=== PATIENT | female | born 1960 | race Caucasian/White ===

== ENCOUNTER 2020-07-25 04:13 | Observation (INO) | payer BC ==
--- NOTE | 2020-07-25 04:30 | ED ---
Chest Pain HPI - General Chief Complaint: Chest Pain Stated Complaint: Chest Pain Time Seen by Provider: 07/25/20 04:20 Source: patient, RN notes reviewed, old records reviewed Mode of arrival: wheelchair Limitations: no limitations - History of Present Illness MD Complaint: chest pain -: hour(s) Onset: during rest, awoke with symptoms Pain Location: substernal, left chest Pain Radiation: LUE Severity: moderate Severity scale (1-10): 6 Quality: heaviness Consistency: constant Improves With: nothing Worsens With: nothing Anginal Symptoms: dyspnea Other Symptoms: palpitations Treatments Prior to Arrival: none - Related Data Home Medications Medication Instructions Recorded Confirmed Cholecalciferol [Vitamin D3] 1,000 unit PO DAILY 07/17/17 07/17/17 Multivitamins, Thera [Multivitamin 1 tab PO DAILY 07/17/17 07/17/17 (formulary)] Mv-Min/Vit C/Glut/Lysine/Hc124 1 tab PO DAILY 07/17/17 07/17/17 [Airborne Tablet Chewable] Venlafaxine HCl ER [Effexor Xr] 37.5 mg PO DAILY 07/17/17 07/17/17 Allergies Allergy/AdvReac Type Severity Reaction Status Date / Time No Known Allergies Allergy Verified 07/25/20 04:27 Review of Systems ROS Statement: Those systems with pertinent positive or pertinent negative responses have been documented in the HPI. ROS Other: All systems not noted in ROS Statement are negative. EKG Findings - EKG Comments: EKG Findings:: EKG is sinus rhythm 92, OH 130 QRS 92 QTC 440 Past Medical History Past Medical History: No Reported History History of Any Multi-Drug Resistant Organisms: None Reported Past Surgical History: No Surgical Hx Reported Past Psychological History: Depression Smoking Status: Never smoker Past Alcohol Use History: Rare Past Drug Use History: None Reported General Exam Limitations: no limitations General appearance: alert, in no apparent distress, anxious Head exam: Present: atraumatic, normocephalic, normal inspection Eye exam: Present: normal appearance, PERRL, EOMI. Absent: scleral icterus, conjunctival injection, periorbital swelling ENT exam: Present: normal exam, mucous membranes moist Neck exam: Present: normal inspection. Absent: tenderness, meningismus, lymphadenopathy Respiratory exam: Present: normal lung sounds bilaterally. Absent: respiratory distress, wheezes, rales, rhonchi, stridor Cardiovascular Exam: Present: regular rate, normal rhythm, normal heart sounds. Absent: systolic murmur, diastolic murmur, rubs, gallop, clicks GI/Abdominal exam: Present: soft, normal bowel sounds. Absent: distended, tenderness, guarding, rebound, rigid Extremities exam: Present: normal inspection, full ROM, normal capillary refill. Absent: tenderness, pedal edema, joint swelling, calf tenderness Back exam: Present: normal inspection Neurological exam: Present: alert, oriented X3, CN II-XII intact Psychiatric exam: Present: normal affect, normal mood Skin exam: Present: warm, dry, intact, normal color. Absent: rash Course Vital Signs 07/25/20 04:25 Temperature 98.2 F Pulse Rate 100 Respiratory 18 Rate Blood Pressure 135/75 O2 Sat by Pulse 100 Oximetry Critical Care Time Critical Care Time: Yes Total Critical Care Time: 31 Disposition Clinical Impression: Chest pain Disposition: ADMITTED IP TO THIS [facility] Condition: Undetermined Referrals: Qing Alcala MD [Primary Care Provider] - 1-2 days
[2020-07-25 04:39] LABS: Basophils % (A) 1 %; Eosinophils # (A) 0.1 k/uL (0-0.7); Eosinophils % (A) 2 %; HCT 40.1 % (34.0-46.0); HGB 13.5 gm/dL (11.4-16.0); Lymphocytes # (A) 2.9 k/uL (1.0-4.8); Lymphocytes % (A) 49 %; MCH 30.6 pg (25.0-35.0); MCHC 33.6 g/dL (31.0-37.0); MCV 91.1 fL (80.0-100.0); Mean Platelet Volume 8.3; Monocytes # (A) 0.3 k/uL (0-1.0); Monocytes % (A) 6 %; Neutrophils # (A) 2.3 k/uL (1.3-7.7); Neutrophils % (A) 40 %; Platelet Count 273 k/uL (150-450); RBC 4.41 m/uL (3.80-5.40); WBC 5.8 k/uL (3.8-10.6)
[2020-07-25 04:50] LABS: INR 0.9 (<1.2); Partial Thromboplastin Time 22.6 sec (22.0-30.0); Prothrombin Time 9.6 sec (9.0-12.0)
[2020-07-25 04:51] LABS: ALT 14 U/L (4-34); AST 28 U/L (14-36); African American GFR (CKD) >90 (>60 ml/min/1.73 sqM); Albumin 4.4 g/dL (3.5-5.0); Alkaline Phosphatase 64 U/L (38-126); Anion Gap 6 mmol/L; Blood Urea Nitrogen 18 mg/dL (7-17); Calcium 9.2 mg/dL (8.4-10.2); Carbon Dioxide 24 mmol/L (22-30); Chloride 106 mmol/L (98-107); Glucose 117 mg/dL (74-99); Lipase 183 U/L (23-300); Magnesium 2.2 mg/dL (1.6-2.3); Non-African American GFR(CKD) 78 (>60 ml/min/1.73 sqM); Potassium 4.1 mmol/L (3.5-5.1); Sodium 136 mmol/L (137-145); Total Bilirubin 0.4 mg/dL (0.2-1.3); Total Protein 6.7 g/dL (6.3-8.2)
--- NOTE | 2020-07-25 05:03 | XR ---
EXAM: XR Chest, 2 Views CLINICAL HISTORY: ITS.REASON XR Reason: Chest Pain TECHNIQUE: Frontal and lateral views of the chest. COMPARISON: 07/17/2017 FINDINGS: Lungs: No focal consolidation. The pulmonary vasculature demonstrates no significant radiographic abnormality. Pleural space: Unremarkable. No pneumothorax. No large pleural effusion. Heart: Unremarkable. No cardiomegaly. Mediastinum: Unremarkable. No significant abnormality identified. The trachea is midline. Bones/joints: Unremarkable. IMPRESSION: No focal consolidation or acute cardiopulmonary process identified.
[2020-07-25] MEDS ORDERED: HEPARIN SODIUM,PORCINE 5,000 UNIT/ML 1 ML VIAL IV PRN (05:04)
[2020-07-25] MEDS ORDERED: HEPARIN SODIUM,PORCINE 5,000 UNIT/ML 1 ML VIAL IV ONE (05:04)
[2020-07-25] MEDS ORDERED: ASPIRIN 81 MG PO STA (05:04)
[2020-07-25] MEDS ORDERED: NITROGLYCERIN SL TABS 0.4 MG TAB SUBLINGUAL PRN (05:04)
[2020-07-25] MEDS ORDERED: HEPARIN SOD,PORK IN 0.45% NACL 25,000 UNIT in 0.45% NACL 1 250ML.BAG IV SCH (05:15)
[2020-07-25] MEDS ORDERED: SODIUM CHLORIDE 0.9% 1,000 ML IV SCH (05:15)
--- NOTE | 2020-07-25 08:47 | P.HPIM ---
History of Present Illness H&P Date: 07/25/20 Chief Complaint: chest pain Patient is a 60-year-old female with no significant past medical history who presented to the emergency department with complaints of chest discomfort. Arrival to the emergency department her vital signs were within normal limits. Initial EKG showed some ST segment depression in V1 3 through V6 however not confirmed on repeat EKGs. Initial troponin was negative. Her chest pain resolved after receiving a dose of aspirin be started on a heparin drip. Not require nitroglycerin. Arrangements are made for admission for chest pain observation. Patient seen and examined at bedside. Started at bedtime around 9 pm. Was unable to sleep on her left side due to increasing discomfort. Pain consistent over left breast area. Comes and Goes. Laying on the left side makes it worse. 2 am not feeling well. At 3 am felt shaky and warm. + rigors. 3:30 + shaking again, felt unable to control her body. No pain in left arm, no nausea, no sweating, no numbness or tingling, No shortness of breath, Not light headed Increased fatigue for the last few weeks. No cough, cold, fever, flu, No abdominal pain, dysurina, diarrhea. No unusual activity yesterday, no new foods, no hx of acid reflux No hx of stress test, never seen at [facility] Review of Systems Pertinent positives and negatives as discussed in HPI, a complete review of systems was performed and all other systems are negative. Past Medical History Past Medical History: No Reported History History of Any Multi-Drug Resistant Organisms: None Reported Past Surgical History: No Surgical Hx Reported Past Psychological History: Depression Smoking Status: Never smoker Past Alcohol Use History: Rare Past Drug Use History: None Reported - Past Family History Mother Family Medical History: Hyperlipidemia Father Additional Family Medical History / Comment(s): CAD with CABS in his 50's. Grandfather and uncles all with [place] and heart disease Medications and Allergies Home Medications Medication Instructions Recorded Confirmed Type Mv-Min/Vit C/Glut/Lysine/Hc124 2 tab PO DAILY 07/17/17 07/25/20 History [Airborne Tablet Chewable] Venlafaxine HCl ER [Effexor Xr] 37.5 mg PO HS 07/17/17 07/25/20 History Vitamin C/Biotin [Hair, Skin and 1 tab PO DAILY 07/25/20 07/25/20 History Nails] Allergies Allergy/AdvReac Type Severity Reaction Status Date / Time No Known Allergies Allergy Verified 07/25/20 06:12 Physical Exam Osteopathic Statement: *. No significant issues noted on an osteopathic structural exam other than those noted in the History and Physical/Consult. Vitals: Vital Signs Temp Pulse Resp BP Pulse Ox 07/25/20 05:43 76 18 132/73 98 07/25/20 04:25 98.2 F 100 18 135/75 100 Intake and Output 07/24/20 07/25/20 07/25/20 22:59 06:59 14:59 Intake Total 0 Balance 0 Intake: Oral 0 Other: Weight 54.885 kg General: non toxic, no distress, appears at stated age Derm: warm, dry Head: atraumatic, normocephalic, symmetric Eyes: EOMI, no lid lag, anicteric sclera, pupils equal round reactive to light ENT: Nose and ears atraumatic, no thrush, no pharyngeal erythema Neck: No thyromegaly, no cervical lymphadenopathy, trachea midline, supple Mouth: no lip lesion, mucus membranes moist Cardiovascular: S1S2 reg, no murmur, positive posterior tibial pulse bilateral, no edema, capillary refill less than 2 seconds, Chest pain does not recur with palpation over her left chest wall Lungs: clear to ascultation bilateral, no ronchi, no rales, no wheeze, no acce ssory muscle use Abdominal: soft, nontender to palpation, no guarding, no appreciable organomegaly, normal bowel sounds Ext: no gross muscle atrophy, muscle strength muscle strength 5 out of 5 in all 4 extremities, no contractures, Negative empty can test, negative supination and pronation of arm with resistance test, no pain with resisted abduction or abduction of arm Neuro: CN II-XI grossly intact, light touch intact all 4 extremities, finger to nose within normal limits, Psych: Alert, oriented, appropriate affect Results CBC & Chem 7: 07/25/20 04:34 07/25/20 04:34 Labs: Abnormal Lab Results - Last 24 Hours (Table) 07/25/20 Range/Units 04:34 Sodium 136 L (137-145) mmol/L BUN 18 H (7-17) mg/dL Glucose 117 H (74-99) mg/dL Chest x-ray: report reviewed Assessment and Plan Assessment: Chest pain -Await repeat troponin -Consult cardiology -Remain nothing by mouth -Heparin drip, aspirin, beta heather on hold in case need for stress test today -Telemetry -Serial EKG -Patient underwent a cholesterol profile in 01/29- total cholesterol 194, LDL 91.6, VLDL 14.4, HDL 88 Depression - conitnue effexor The patient is placed in observation with an anticipated less than 2 midnight stay for evaluation of chest pain. Surrogate decision-maker: CODE STATUS:full DVT prophylaxis: on heparin gtt Discussed with: patient, nursing Anticipated discharge date: 12-[address]: home A total of 45 minutes was spent on the care of this complex patient more than 50% of the time was spent in counseling and care coordination.
[2020-07-25] MEDS ORDERED: METOPROLOL TARTRATE 25 MG TAB PO SCH (09:00)
[2020-07-25] MEDS ORDERED: ATORVASTATIN 80 MG TAB PO SCH (09:00)
[2020-07-25 09:28] VITALS: RESP 16
[2020-07-25 11:21] VITALS: BP 115/58; PULSE 80; TEMP 98.1
--- NOTE | 2020-07-25 12:59 | P.STRESS ---
- Stress Test Note Stress Test Results/Findings: Exam Performed: stress echo exercise Exam Date: 07/25/20 Reason for Exam: CP Height: 5 ft Weight: 54.88 kg Protocol: STRESS ECHO EXERCISE Stage: 2 Duration of Exercise: 6:00 Resting Heart Rate: 73 Resting Blood Pressure: 120/77 Maximum Achieved Heart Rate: 169 Maximum Achieved Blood Pressure: 162/79 85% PMHR: 138 100% PMHR: 162 METS: 7.1 Technologist Comment: Stress Test Results/Findings: Patient underwent exercise stress echo with a Reymundo protocol treadmill stress test. Patient exercised into Stage 2 for a total of 6 minutes reaching a total of and 7.1 METS. Patient's maximum heart rate was 169 which represented 100 % age-predicted maximum heart rate. Stress EKG portion: At baseline patient's EKG showed normal sinus rhythm, normal axis, no significant ST-T wave abnormalities. At peak exercise, EKG showed mild 0.[address] depressions in the inferior and lateral leads which is nondiagnostic for ischemia.. Stress echo portion: 2-D echocardiogram was performed in the parasternal long, personal short, apical 2 and apical four-chamber views at rest, peak exercise and in recovery. At baseline, echocardiogram showed left ventricular ejection fraction 60% without wall motion abnormalities. With peak exercise, echocardiogram shows improvement in left ventricular ejection fraction, increase contractility, decrease in left ventricular dimension without wall motion abnormalities consistent with a normal response to exercise. Conclusions: 1. Normal EKG and echo response to exercise without evidence of inducible ischemia. 2. Fair exercise capacity.
--- NOTE | 2020-07-25 13:18 | P.CRDCN ---
History of Present Illness Consult date: 07/25/20 History of present illness: CHIEF COMPLAINT: Chest pain HISTORY OF PRESENT ILLNESS: This is a 60-year old female with a past medical history significant for depression. Patient does not follow with a case hardener. We have been asked to see the patient in consultation for chest pain. Patient states she went to bed last night around 9pm and started having left sided chest pain. She also reports feeling very shaky at that time. She denies any radiation of the pain. She states the pain was worse when she laid on her left side. She denied shortness of breath. She denied palpitations. Denied dizziness or lightheadedness. DIAGNOSTICS: EKG reveals sinus mechanism with ST depression in V4-V6 Chest xray no focal consolidation or acute process identified Laboratory data: WBC 5.8. Hemoglobin 13.5. Platelet count 273. Sodium 136. Potassium 4.1. BUN 18. Creatinine 0.83. Magnesium 2.2. Troponin negative 3 Current home cardiac medications include none REVIEW OF SYSTEMS: At the time of my exam: CONSTITUTIONAL: Denies fever or chills. HEENT: Denies blurred vision, vision changes, or eye pain. Denies hemoptysis CARDIOVASCULAR: Denies chest pain, orthopnea, PND or palpitations RESPIRATORY: No shortness of breath. GASTROINTESTINAL: Denies abdominal pain. Denies nausea or vomiting. HEMATOLOGIC: Denies bleeding disorders. GENITOURINARY: Denies any blood in urine. SKIN: Denies pruitis. Denies rash. PHYSICAL EXAM: VITAL SIGNS: Reviewed. GENERAL: Well-developed in no acute distress. HEENT: Head is normocephalic. Pupils are equal, round. Sclerae anicteric. Mucous membranes of the mouth are moist. Neck supple. No JVD or thyromegaly LUNGS: Respirations even and unlabored. Lungs essentially clear to auscultation bilaterally. HEART: Regular rate and rhythm. S1 and S2 heard. ABDOMEN: Soft. Nondistended. Nontender. EXTREMITIES: Normal range of motion. No clubbing or cyanosis. Peripheral pulses intact. No lower extremity edema NEUROLOGIC: Awake and alert. Oriented x 3. ASSESSMENT: Chest pain, troponin negative x 3 Depression PLAN: An acute coronary event has been ruled out Patient to undergo stress echo today. If negative, she may be discharged home from a cardiac standpoint Nurse practitioner note has been reviewed by physician. Signing provider agrees with the documented findings, assessment, and plan of care. Past Medical History Past Medical History: No Reported History History of Any Multi-Drug Resistant Organisms: None Reported Past Surgical History: No Surgical Hx Reported Past Psychological History: Depression Smoking Status: Never smoker Past Alcohol Use History: Rare Past Drug Use History: None Reported - Past Family History Mother Family Medical History: Hyperlipidemia Father Additional Family Medical History / Comment(s): CAD with CABS in his 50's. Grandfather and uncles all with [place] and heart disease Medications and Allergies Home Medications Medication Instructions Recorded Confirmed Type Mv-Min/Vit C/Glut/Lysine/Hc124 2 tab PO DAILY 07/17/17 07/25/20 History [Airborne Tablet Chewable] Venlafaxine HCl ER [Effexor Xr] 37.5 mg PO HS 07/17/17 07/25/20 History Vitamin C/Biotin [Hair, Skin and 1 tab PO DAILY 07/25/20 07/25/20 History Nails] Allergies Allergy/AdvReac Type Severity Reaction Status Date / Time No Known Allergies Allergy Verified 07/25/20 06:12 Physical Exam Vitals: Vital Signs Temp Pulse Pulse Resp BP BP Pulse Ox 07/25/20 11:20 98.1 F 80 16 115/58 99 07/25/20 09:00 97.9 F 77 16 111/59 97 07/25/20 05:43 76 18 132/73 98 07/25/20 04:25 98.2 F 100 18 135/75 100 Intake and Output 07/24/20 07/25/20 07/25/20 22:59 06:59 14:59 Intake Total 120 Balance 120 Intake: Oral 120 Other: Weight 54.885 kg 54.88 kg Results 07/25/20 04:34 07/25/20 04:34 Cardiac Enzymes 07/25/20 07/25/20 07/25/20 Range/Units 04:34 04:34 07:58 AST 28 (14-36) U/L Troponin I <0.012 <0.012 (0.000-0.034) ng/mL 07/25/20 Range/Units 11:12 AST (14-36) U/L Troponin I <0.012 (0.000-0.034) ng/mL Coagulation 07/25/20 07/25/20 Range/Units 04:34 11:12 PT 9.6 (9.0-12.0) sec APTT 22.6 33.4 H (22.0-30.0) sec CBC 07/25/20 Range/Units 04:34 WBC 5.8 (3.8-10.6) k/uL RBC 4.41 (3.80-5.40) m/uL Hgb 13.5 (11.4-16.0) gm/dL Hct 40.1 (34.0-46.0) % Plt Count 273 (150-450) k/uL Comprehensive Metabolic Panel 07/25/20 Range/Units 04:34 Sodium 136 L (137-145) mmol/L Potassium 4.1 (3.5-5.1) mmol/L Chloride 106 (98-107) mmol/L Carbon Dioxide 24 (22-30) mmol/L BUN 18 H (7-17) mg/dL Creatinine 0.83 (0.52-1.04) mg/dL Glucose 117 H (74-99) mg/dL Calcium 9.2 (8.4-10.2) mg/dL AST 28 (14-36) U/L ALT 14 (4-34) U/L Alkaline Phosphatase 64 (38-126) U/L Total Protein 6.7 (6.3-8.2) g/dL Albumin 4.4 (3.5-5.0) g/dL Current Medications Generic Name Dose Route Start Last Admin Trade Name Freq PRN Reason Stop Dose Admin Aspirin 325 mg 07/26/20 09:00 Aspirin 325 Mg Tab PO DAILY [facility] Atorvastatin Calcium 80 mg 07/25/20 09:00 07/25/20 08:24 Atorvastatin 80 Mg Tab PO 80 mg DAILY [facility] Administration Heparin Sodium (Porcine) 0 unit 07/25/20 05:04 Heparin Sodium,Porcine 5,000 Unit/Ml 1 Ml Vial IV Q6HR PRN Low PTT Protocol Heparin Sodium/Sodium Chloride 250 mls @ 6.586 mls/hr 07/25/20 05:15 07/25/20 05:39 25,000 unit/ Sodium Chloride IV 12 units/kg/hr .Q24H KANIKA 6.586 mls/hr Administration Protocol 12 UNITS/KG/HR Sodium Chloride 1,000 mls @ 20 mls/hr 07/25/20 05:15 07/25/20 05:43 Saline 0.9% IV 20 mls/hr .Q24H KANIKA Administration Metoprolol Tartrate 25 mg 07/25/20 09:00 Metoprolol Tartrate 25 Mg Tab PO BID KANIKA Nitroglycerin 0.4 mg 07/25/20 05:04 Nitroglycerin Sl Tabs 0.4 Mg Tab SUBLINGUAL Q5M PRN Chest Pain Venlafaxine HCl 37.5 mg 07/25/20 21:00 Venlafaxine Hcl Er 37.5 Mg Cap PO HS KANIKA Intake and Output 07/24/20 07/25/20 07/25/20 22:59 06:59 14:59 Intake Total 120 Balance 120 Intake: Oral 120 Other: Weight 54.885 kg 54.88 kg Patient Weight 07/26/20 06:59 Weight 54.88 kg 07/25/20 04:34 07/25/20 04:34
[2020-07-25 16:04] LABS: Glucose,Whole Blood 92 mg/dL (75-99)
--- NOTE | 2020-07-25 16:13 | P.DS ---
Providers Date of admission: 07/25/20 05:07 Expected date of discharge: 07/25/20 Attending physician: Carissa Silva MD Consults: 07/25/20 05:04 Consult Physician Urgent Consulting Provider: Vale Tilley Consult Reason/Comments: cp Do you want consulting provider notified?: Yes Primary care physician: Qing Alcala [facility] Course: Discharge Diagnosis: Non cardiac chest pain Depression/ anxiety Hospital Course: Patient is a 60-year-old female with no significant past medical history who presented to the emergency department with complaints of chest discomfort. Arrival to the emergency department her vital signs were within normal limits. Initial EKG showed some ST segment depression in V1 3 through V6 however not confirmed on repeat EKGs. Initial troponin was negative. Her chest pain resolved after receiving a dose of aspirin be started on a heparin drip. Not require nitroglycerin. Arrangements are made for admission for chest pain observation. Her troponin remained negative. She was seen by cardio and underwent exercise stress echo which did not reveal any signs of ischemia. She was determined stable for discharge home. She will follow with Dr. Thao next week. Physical exam as per H and P same date. A total of 20 minutes of time were spent preparing this complex discharge summary . Patient Condition at Discharge: Stable Plan - Discharge Summary Discharge Rx Participant: Yes New Discharge Prescriptions: No Action Venlafaxine HCl ER [Effexor Xr] 37.5 mg PO HS Mv-Min/Vit C/Glut/Lysine/Hc124 [Airborne Tablet Chewable] 2 tab PO DAILY Vitamin C/Biotin [Hair, Skin and Nails] 1 tab PO DAILY Discharge Medication List Mv-Min/Vit C/Glut/Lysine/Hc124 [Airborne Tablet Chewable] 2 tab PO DAILY 07/17/17 [History] Venlafaxine HCl ER [Effexor Xr] 37.5 mg PO HS 07/17/17 [History] Vitamin C/Biotin [Hair, Skin and Nails] 1 tab PO DAILY 07/25/20 [History] Follow up Appointment(s)/Referral(s): Favio Schmitz MD [STAFF PHYSICIAN] - 3 Weeks Qing Alcala MD [Primary Care Provider] - 1-2 days
[2020-07-25] MEDS ORDERED: VENLAFAXINE HCL ER 37.5 MG CAP PO SCH (21:00)
[2020-07-26] MEDS ORDERED: ASPIRIN 325 MG TAB PO SCH (09:00)
== END 2020-07-25 17:27 | disposition home or self-care (01) ==
LOC: EC 04:13 → 1SOBS 05:07 → 3SCARD 05:58
PROVIDERS: ADMIT Internal Medicine; ATTEND Internal Medicine
DX: R07.89 Other chest pain (principal); R06.00 Dyspnea, unspecified; R00.2 Palpitations; R68.89 Other general symptoms and signs; F32.9 Major depressive disorder, single episode, unspecified; F41.9 Anxiety disorder, unspecified; Z79.899 Other long term (current) drug therapy; Z82.49 Family history of ischemic heart disease and other diseases of the circulatory system
CPT/HCPCS: 96376; 96365; 96366; 99291; 36415; 93005; 93351; 83880; 80053; 83690; 83735; 84484; 85025; 85610; 85730; 71046; G0378 ×2; J1644 ×2

== ENCOUNTER 2023-04-12 09:14 | Day surgery (SDC) | payer BC ==
[2023-04-12] MEDS ORDERED: LIDOCAINE 1% (10MG/ML) FOR IV START INTRADERMA PRN (09:24)
[2023-04-12] MEDS ORDERED: ONDANSETRON 4 MG/2 ML VIAL IVP PRN (09:24)
[2023-04-12] MEDS: LACTATED RINGERS 1,000 ML IV SCH ×2 (09:29→10:00)
[2023-04-12 09:37] VITALS: RESP 16; TEMP 97.7
[2023-04-12] MEDS ORDERED: PROPOFOL 10 MG/ML 20 ML VIAL IV ONE (10:06)
--- NOTE | 2023-04-12 10:25 | P.PCN ---
Date of Procedure: 04/12/23 Procedure(s) Performed: BRIEF HISTORY: Patient is a 63-year-old pleasant 8 female scheduled for an elective colonoscopy as a part of screening for colon cancer. PROCEDURE PERFORMED: Colonoscopy. PREOPERATIVE DIAGNOSIS: Screening for colon cancer. IV sedation per Anesthesia. PROCEDURE: After informed consent was obtained, the patient, was brought into the endoscopy unit. IV sedation was administered by Anesthesia under continuous monitoring. Digital rectal examination was normal. Initially the Olympus CF-160 flexible video colonoscope was then inserted in the rectum, gradually advanced into the cecum without any difficulty. Careful examination was performed as the scope was gradually being withdrawn. Ileocecal valve and the appendiceal orifice were visualized and appeared normal. Prep was excellent. Mucosa of the cecum, ascending colon, transverse colon, descending colon, sigmoid colon, and rectum appeared normal. Retroflexion was performed in the rectum and no lesions were seen. The patient tolerated the procedure well. IMPRESSION: Normal-appearing colon from rectum to cecum with no evidence of colorectal neoplasia. RECOMMENDATIONS: Findings of this examination were discussed with the patient as well as her family. She was advised to have a repeat surveillance colonoscopy in 10 years..
[2023-04-12 11:03] VITALS: BP 117/65; PULSE 79
== END 2023-04-12 11:30 | disposition home or self-care (01) ==
LOC: ORWHC2ENDO 09:14
PROVIDERS: ATTEND Internal Medicine Gastroenterology
DX: Z12.11 Encounter for screening for malignant neoplasm of colon (principal); F32.A Depression, unspecified; Z79.811 Long term (current) use of aromatase inhibitors; Z79.899 Other long term (current) drug therapy
CPT/HCPCS: 45378; J2704